=== PATIENT | female | born 1970 | race Caucasian/White ===

== ENCOUNTER 2021-01-29 12:26 | Outpatient (CLI) | payer OTHER ==
--- NOTE | 2021-01-29 13:49 | XRAY Report ---
PROCEDURE: Cervical Spine w/Flex/Ext INDICATIONS: NECK STRAIN TECHNIQUE: 5 views of the cervical spine were acquired. COMPARISON: None. FINDINGS: Bones: No fractures or dislocations to the T2 level. No suspicious bony lesions. There is moderate to severe cervical spondylitic change. There is disc height loss and anterior osteophyte formation an d bilateral uncovertebral joint hypertrophy at C5-C6 and C6-C7. There is multilevel cervical facet ar thropathy. There is bony foraminal narrowing which is most prominent bilaterally at C5-C6 and on the left at C6-C7. There is no abnormal motion on flexion and extension. Soft tissues: Prevertebral soft tissues are normal in thickness. IMPRESSION: Moderate to severe cervical spondylosis. No evidence acute bony abnormality of the cervi tri spine. If clinical suspicion and/or symptoms persist, further assessment with repeat plain films or advanced imaging (e.g., CT, MRI, or bone scan) may be helpful for further assessment. Reviewed by: Collins Jordan MD on 01/29/2021 1:48 PM PDT Approved by: Collins Jordan MD on 01/29/2021 1:48 PM PDT Station ID: [id number]
== END 2021-01-29 12:27 | disposition home or self-care (01) ==
LOC: DI 12:26
PROVIDERS: ATTEND Chiropractor Neurology
DX: M47.812 Spondylosis without myelopathy or radiculopathy, cervical region (principal); G44.309 Post-traumatic headache, unspecified, not intractable

== ENCOUNTER 2021-04-05 14:11 | Emergency (ER) | payer OTHER ==
[2021-04-05] MEDS ORDERED: DEXAMETHASONE 10 MG/ML VIAL PO STA (15:57)
[2021-04-05] MEDS ORDERED: CHERRY SYRUP 10 ML UDC PO ONE (15:57)
--- NOTE | 2021-04-05 15:58 | ED Physician Documentation ---
PD HPI URI - Stated complaint Stated Complaint: C+ WEAK/FATIGUE - Chief complaint Chief Complaint: General - History obtained from History obtained from: Patient, Family - History of Present Illness Timing - onset: How many days ago (9) Timing duration: Days (9) Timing details: Gradual onset, Still present Associated symptoms: Fever, Chills, Sweats, Nasal congestion, Dry cough Contributing factors: Sick contact (, daughter ill with covid) Improves by: Rest, Medication Worsened by: Activity Similar symptoms before: Has not had sx before Recently seen: Not recently seen - Additional information Additional information: Previously well 50-year-old female who is immunized with [place] has developed signs and symptoms of Covid. She developed symptoms about 9 days ago and she has had a cough fever chills and aches. She does not have shortness of breath she is not making any sputum and her fever has improved. She has persistence of symptoms feels unwell and is here today with her and daughter to get checked out. She is not interested in monoclonal antibody therapy. Review of Systems Constitutional: reports: Fever, Chills, Myalgias Eyes: denies: Decreased vision Ears: denies: Ear pain Nose: reports: Rhinorrhea / runny nose, Congestion Throat: reports: Sore throat Cardiac: denies: Chest pain / pressure, Palpitations Respiratory: reports: Cough. denies: Dyspnea GI: denies: Vomiting : denies: Dysuria, Frequency PD PAST MEDICAL HISTORY - Present Medications Home Medications: Ambulatory Orders Medication Instructions Recorded Confirmed Codeine Phosphate/Guaifenesin 5 - 10 ml PO Q6HR PRN #120 ml 04/05/21 [Guaifen-Codeine 100-10 mg/5 ml] dexAMETHasone [Decadron] 4 mg PO DAILY #5 tablet 04/05/21 - Allergies Allergies/Adverse Reactions: Allergies Allergy/AdvReac Type Severity Reaction Status Date / Time No Known Drug Allergies Allergy Verified 04/05/21 14:40 PD ED PE NORMAL - Vitals Vital signs reviewed: Yes (hypertensive mild ) - General General: Alert and oriented X 3, No acute distress, Well developed/nourished - HEENT HEENT: Atraumatic, PERRL, EOMI - Neck Neck: Supple, no meningeal sign, No bony TTP - Cardiac Cardiac: RRR, No murmur - Respiratory Respiratory: No respiratory distress, Clear bilaterally - Abdomen Abdomen: Soft, Non tender - Back Back: No CVA TTP, No spinal TTP - Derm Derm: Normal color, Warm and dry, No rash - Extremities Extremities: No deformity, No edema - Neuro Neuro: Alert and oriented X 3, animal attendants and trainers 2-12 intact, No motor deficit, No sensory deficit, Normal speech Eye Opening: Spontaneous Motor: Obeys Commands Verbal: Oriented GCS Score: 15 - Psych Psych: Normal mood, Normal affect Results - Vitals Vitals: Vital Signs - 24 hr 04/05/21 04/05/21 14:36 16:30 Temperature 35.9 C L Heart Rate 87 54 L Respiratory 16 18 Rate Blood Pressure 131/90 H 127/85 H O2 Saturation 97 99 Oxygen O2 Source Room air PD MEDICAL DECISION MAKING - ED course Complexity details: reviewed results, re-evaluated patient, considered differential, d/w patient ED course: 50-year-old fully immunized female has developed signs symptoms of Covid she is tested positive for this at home. She is not coughing up any sputum and she is not short of breath. Her oxygen saturation is 98% on room air. Patient appears to be recovering from her illness and has cough coughing paroxysms as well as myalgias and she is given a dose of dexamethasone. We will give her some cough suppressant and a short course of dexamethasone. Departure - Departure Disposition: 01 Home, Self Care Clinical Impression: COVID-19 Condition: Stable Instructions: COVID-19 [facility] of [facility], Flu and Cold: Nutrition, Prevention and Treatment Tips Follow-Up: [facility] [Provider Group] Prescriptions: Codeine Phosphate/Guaifenesin [Guaifen-Codeine 100-10 mg/5 ml] 5 - 10 ml PO Q6HR PRN #120 ml PRN Reason: Cough dexAMETHasone [Decadron] 4 mg PO DAILY #5 tablet Discharge Date/Time: 04/05/21 16:35
[2021-04-05 16:40] VITALS: BP 127/85
== END 2021-04-05 16:35 | disposition home or self-care (01) ==
LOC: ED 14:11
DX: U07.1 COVID-19 (principal)
CPT/HCPCS: 99282; A9270

== ENCOUNTER 2022-09-08 09:05 | Outpatient (CLI) | payer OTHER ==
[2022-09-08 15:20] LABS: BASOPHILS % (AUTO) 0.7 %; EOSINOPHILS % (AUTO) 0.9 %; HCT - HEMATOCRIT 40.5 % (37.0-47.0); HGB - HEMOGLOBIN 12.7 g/dL (12.0-16.0); LYMPHOCYTES # (AUTO) 1.9 10^3/uL (1.5-3.5); LYMPHOCYTES % (AUTO) 40.6 %; MEAN CORPUSCULAR HEMOGLOBIN 29.4 pg (27.0-31.0); MEAN CORPUSCULAR HGB CONC 31.4 g/dL (32.0-36.0); MEAN CORPUSCULAR VOLUME 93.8 fL (81.0-99.0); MEAN PLATELET VOLUME 9.2 fL (7.9-10.8); MONOCYTES # (AUTO) 0.4 10^3/uL (0.0-1.0); MONOCYTES % (AUTO) 9.4 %; NEUTROPHILS # (AUTO) 2.2 10^3/uL (1.5-6.6); NEUTROPHILS % (AUTO) 48.2 %; PLT - PLATELET COUNT 285 10^3/uL (130-450); RED BLOOD COUNT 4.32 10^6/uL (4.20-5.40); RED CELL DISTRIBUTION WIDTH 13.1 % (12.0-15.0); WHITE BLOOD COUNT 4.6 x10^3/uL (4.8-10.8)
[2022-09-08 15:53] LABS: INFECTIOUS MONONUCLEOSIS NEGATIVE (Negative)
[2022-09-08 16:00] LABS: T4 (THYROXINE) 5.16 ug/dL (6.09-12.23)
[2022-09-08 16:04] LABS: THYROID STIMULATING HORMONE 2.89 uIU/mL (0.34-5.60)
[2022-09-09 20:08] LABS: THYROGLOBULIN ANTIBODY <1.0 IU/mL (0.0-0.9); THYROID PEROXIDASE (TPO) AB <9 IU/mL (0-34)
== END 2022-09-08 09:06 | disposition home or self-care (01) ==
LOC: LAB.S 09:05
PROVIDERS: ATTEND Physician Assistant Medical
DX: E04.2 Nontoxic multinodular goiter (principal); J02.9 Acute pharyngitis, unspecified; R53.83 Other fatigue
CPT/HCPCS: 36415; 84436; 84443; 84480; 85025; 86308; 86376; 86800

== ENCOUNTER 2023-09-30 08:31 | Outpatient (CLI) | payer BC ==
[2023-09-30 15:37] LABS: HGB - HEMOGLOBIN 11.7 g/dL (12.0-16.0); MEAN CORPUSCULAR HGB CONC 31.6 g/dL (32.0-36.0); MEAN CORPUSCULAR VOLUME 91.6 fL (81.0-99.0); MEAN PLATELET VOLUME 9.1 fL (7.9-10.8); RED BLOOD COUNT 4.04 10^6/uL (4.20-5.40); RED CELL DISTRIBUTION WIDTH 12.2 % (12.0-15.0)
[2023-09-30 15:58] LABS: CHOL/HDL RATIO 3.5 (<4.4); CHOLESTEROL 181 mg/dL; HDL CHOLESTEROL 51 mg/dL; LDL CHOLESTEROL,CALCULATED 116 mg/dL; LDL/HDL RATIO 2.3 (<4.4); TRIGLYCERIDES 71 mg/dL (48-352); VLDL CHOLESTEROL 14 mg/dL
[2023-09-30 16:18] LABS: THYROID STIMULATING HORMONE 2.17 uIU/mL (0.34-5.60)
== END 2023-09-30 08:32 | disposition home or self-care (01) ==
LOC: LAB.S 08:31
PROVIDERS: ATTEND Obstetrics & Gynecology
DX: Z78.0 Asymptomatic menopausal state (principal)
CPT/HCPCS: 36415; 80061; 83721; 84443; 85027

== ENCOUNTER 2023-10-07 10:51 | Outpatient (CLI) | payer BC ==
--- NOTE | 2023-10-15 11:48 | Mammography Report ---
BILATERAL DIGITAL SCREENING MAMMOGRAM 3D/2D WITH AUGMENTATION: 10/07/2023 CLINICAL: Routine screening. Family history of breast cancer. Comparison is made to exams dated: 01/08/2022 mammogram, 06/10/2016 mammogram, and 05/22/2014 mammogram - [facility]. There are scattered areas of fibroglandular density in both breasts (category b / 25%-50% glandular t issue). Bilateral breast implants are stable. No significant masses, calcifications, or other findings are seen in either breast. There has been no significant interval change. IMPRESSION: NEGATIVE There is no mammographic evidence of malignancy. A 1 year screening mammogram is recommended. Based on the Tyrer Cuzick model (a risk assessment model) the patient's lifetime risk is 7.8% and her 10 year risk is 2.1%. According to the ACR, ACS, and NCCN guidelines, an annual breast MRI exam dell g with mammogram is recommended if the patient's lifetime risk is 20% or greater. This exam was interpreted at Station ID: [id number]. NOTE: For mammograms, a report in lay terms will be sent to the patient. Approximately 15% of breast malignancies will not be visualized mammographically. In the management of a palpable breast mass, a negative mammogram must not discourage biopsy of a clinically suspicious lesion. Electronically Signed By: Zakiya [email or web address]/[email or web address]:10/14/2023 10:08:37 letter sent: No_Letter ACR BI-RADS Category 1: Negative [id number] PARENCHYMAL PATTERN: (A) - The breast(s) demonstrate(s) scattered fibroglandular densities. BI-RADS CATEGORY: (1) - 1 RECOMMENDATION: (ANNUAL) - Recommend routine annual screening mammography. [id number] 1 year screening LATERALITY: (B)
== END 2023-10-07 10:52 | disposition home or self-care (01) ==
LOC: DI.S 10:51
DX: Z12.31 Encounter for screening mammogram for malignant neoplasm of breast (principal); Z80.3 Family history of malignant neoplasm of breast; R92.323 Mammographic fibroglandular density, bilateral breasts; Z98.82 Breast implant status

== ENCOUNTER 2023-12-14 14:40 | Outpatient (CLI) | payer BC | END 2023-12-14 14:41 | disposition home or self-care (01) | LOC: LAB 14:40 | PROVIDERS: ATTEND Obstetrics & Gynecology | DX: Z78.0 Asymptomatic menopausal state (principal); Z80.3 Family history of malignant neoplasm of breast | CPT/HCPCS: 36415; 81599; 84403 ==